=== PATIENT | male | born 1985 | race Caucasian/White ===

== ENCOUNTER → 2021-09-07 14:07 | Outpatient (BNVA) | payer OTHER, SELFPAY | PROVIDERS: Visit Provider Pediatrics | DX: Z01.812 Encounter for preprocedural laboratory examination (principal); Z20.822 Contact with and (suspected) exposure to COVID-19 | CPT/HCPCS: 87635 ==

== ENCOUNTER 2021-09-13 10:53 | Outpatient (CLI) | payer OTHER, SELFPAY ==
--- NOTE | 2021-09-13 12:09 | PFTS_ITS ---
Date of Study:09/13/21 Date of Dictation: 09/13/2021 MECHANICS: Post bronchodilator forced vital capacity (FVC) is normal. Post bronchodilator forced expiratory volume in one second (FEV1) is normal. FEV1/FVC is reduced. There is significant response to bronchodilators FLOW VOLUME LOOP: Slight sloping of expiratory limb suggestive of mild airway obstruction. LUNG VOLUMES: Not measured DIFFUSING CAPACITY FOR CARBON MONOXIDE: Not measured . INTERPRETATION: The postbronchodilator spirometry suggestive of mild obstruction. There is significant response to bronchodilators. Lung volumes and gas transfer not measured. MTDD
== END 2021-09-13 10:54 | disposition home or self-care (01) ==
LOC: RT 10:58
PROVIDERS: PCP Family Medicine; Visit Provider Family Medicine
DX: R06.2 Wheezing (principal)
CPT/HCPCS: 94060; J7611

== ENCOUNTER 2021-11-15 06:46 | Outpatient (CLI) | payer OTHER, SELFPAY ==
--- NOTE | 2021-11-15 07:00 | US_ITS ---
WS: [id number] ULTRASOUND ABDOMEN LIMITED CLINICAL INFORMATION: PERSISTENT VOMITING/COLICKY RUQ ABDOMINAL PAIN COMPARISON: None. FINDINGS: Liver Size: Enlarged Craniocaudal length: 18.5 cm. Echogenicity: Coarse Surface nodularity: None. Mass (size and location): None. Bile ducts Intrahepatic ducts: Normal. Common bile duct diameter: 0.5 cm. Gallbladder Normal. Gallstones: None. Gallbladder sludge: None. Gallbladder wall thickening: None. Pericholecystic fluid: None. Sonographic Alonzo sign: Absent. Pancreas Echogenic pancreas. This can be seen with pancreatitis. Recommend with pancreatic enzymes. Normal villalobos creatic duct. Right kidney: Normal. Hydronephrosis: None. Size: 10.4 cm x 5.7 cm x 5.0 cm. Abdominal aorta and IVC Visualized portions are normal. Ascites: None. US/US abdomen limited [id number] IMPRESSION: 1. Hepatomegaly with diffuse fatty infiltration. 2. Normal gallbladder and common bile duct. 3. No hydronephrosis in RIGHT kidney. 4. Echogenic pancreas can be seen with pancreatitis. Correlation with pancreat ic enzymes. This can be further evaluated with contrast-enhanced CT abdomen pel vis.
== END 2021-11-15 06:47 | disposition home or self-care (01) ==
LOC: RAD 06:47
PROVIDERS: PCP Family Medicine; Visit Provider Family Medicine
DX: R11.10 Vomiting, unspecified (principal); R10.11 Right upper quadrant pain; R16.0 Hepatomegaly, not elsewhere classified
CPT/HCPCS: 76705

== ENCOUNTER → 2021-11-29 14:52 | Outpatient (BNVA) | payer OTHER, SELFPAY | PROVIDERS: PCP Family Medicine; Visit Provider Internal Medicine | DX: R53.83 Other fatigue (principal); M25.50 Pain in unspecified joint | CPT/HCPCS: 36415; 72040; 73080; 73120; 73560; 73620; 82533; 82550; 82728; 82784; 83516; 83540; 84100; 84403; 84425; 84443; 85651; 86140; 86200; 86480; 86617; 86704; 86757; 86803; 87340 ==

== ENCOUNTER 2022-02-04 12:04 | Outpatient (CLI) | payer OTHER, SELFPAY ==
[2022-02-04 12:44] LABS: Basophils % 0.2 %; Hematocrit 44.3 % (42.0-52.0); Hemoglobin 15.3 g/dL (11.7-16.6); Lymphocytes # 0.8 10^3/uL (0.8-4.8); Lymphocytes % 12.3 %; Mean Corpuscular HGB Conc 34.5 g/dL (30.0-36.0); Mean Corpuscular Hemoglobin 34.9 pg (28.0-34.0); Mean Corpuscular Volume 101.1 fl (80-94); Mean Platelet Volume 11.2 fL (7.4-10.4); Monocytes # 0.4 10^3/uL (0.2-0.9); Monocytes % 6.6 %; Neutrophils % 80.6 %; Nucleated Red Blood Cells % 0 %; Platelet Count 166 10^3/cmm (130-400); Red Blood Count 4.38 10^6/uL (4.1-5.3); Red Cell Distribution Width 12.7 % (12.1-15.1); White Blood Count 6.1 10^3/uL (4.0-10.0)
[2022-02-04 12:52] LABS: Erythrocyte Sedimentation Rate 4 mm/hr (0-10)
[2022-02-04 13:28] LABS: Alanine Aminotransferase 88 U/L (0-41); Albumin Level 4.5 g/dL (3.5-5.2); Alkaline Phosphatase 93 IU/L (40-130); Anion Gap 16.5 (5-19); Aspartate Amino Transferase 57 U/L (0-40); Blood Urea Nitrogen 9 mg/dL (6-20); Calcium 8.8 mg/dL (8.5-10.5); Carbon Dioxide 26 mmol/L (22-29); Chloride 99 mmol/L (98-107); Globulin 3.3 g/dL (1.3-4.6); Glomerular Filtration Rate 83.6 mL/min (90-130); Glucose 104 mg/dL (65-115); Osmolality Calculated 285 mOsm/kg (285-295); Potassium 3.5 mmol/L (3.5-5.1); Sodium 138 mmol/L (136-145); Total Bilirubin 0.5 mg/dL (0.15-1.2); Total Protein 7.8 g/dL (6.6-8.7)
== END 2022-02-04 12:05 | disposition home or self-care (01) ==
LOC: LAB 12:06
PROVIDERS: PCP Family Medicine; Visit Provider Internal Medicine
DX: M06.9 Rheumatoid arthritis, unspecified (principal); Z79.899 Other long term (current) drug therapy
CPT/HCPCS: 36415; 80053; 85025; 85651; 86140

== ENCOUNTER 2022-02-11 16:42 | Outpatient (CLI) | payer OTHER, SELFPAY ==
--- NOTE | 2022-02-11 | XRR_ITS ---
PROCEDURE INFORMATION: Exam: XR Chest Exam date and time: 02/11/2022 5:54 PM Age: 36 years old Clinical indication: Dyspnea TECHNIQUE: Imaging protocol: Radiologic exam of the chest. Views: 2 views. COMPARISON: CR XR cervical spine fl/ex [id number] 11/29/2021 3:27 PM FINDINGS: Lungs: Hyperinflation, without acute airspace disease. Pleural spaces: No pleural effusion. Heart/Mediastinum: No cardiomegaly. Bones/joints: Mild scoliosis. XR/XR chest 2V* [id number] IMPRESSION: Hyperinflation, without acute airspace disease.
== END 2022-02-11 16:43 | disposition home or self-care (01) ==
PROVIDERS: PCP Family Medicine; Visit Provider Family Medicine
DX: R06.00 Dyspnea, unspecified (principal)
CPT/HCPCS: 71046

== ENCOUNTER → 2022-02-18 16:13 | Outpatient (BNVA) | payer OTHER, SELFPAY | PROVIDERS: PCP Family Medicine; Visit Provider Internal Medicine Critical Care Medicine | DX: R06.02 Shortness of breath (principal); J45.50 Severe persistent asthma, uncomplicated; F17.200 Nicotine dependence, unspecified, uncomplicated | CPT/HCPCS: 36415; 82785; 86003 ==

== ENCOUNTER 2022-09-04 07:23 | Emergency (ER) | payer OTHER, SELFPAY ==
[2022-09-04 07:29] VITALS: BP 171/110; PULSE 89; RESP 16; TEMP 36.8; O2SAT 91; BMI 33.1
--- NOTE | 2022-09-04 07:38 | XR_ITS ---
WS: [id number] RIGHT RIBS, MULTIPLE VIEWS WITH PA CHEST HISTORY: cough, rib pain COMPARISON: 02/11/2022 Lungs and mediastinum: Lungs are clear and well aerated. No pneumothorax or pulmonary contusion. Ribs: No rib fractures or bone destruction identified. XR/XR ribs RT mn 3V w CXR1V [id number] IMPRESSION: No RIGHT rib fractures identified. Nondisplaced rib fracture may be difficult t o identified.
--- NOTE | 2022-09-04 07:39 | ED_ITS ---
HPI - Chest Pain General: Chief Complaint: General Medical Stated Complaint: Cough, Rib pain Time Seen by Provider: 09/04/22 07:24 Source: patient and family Mode of arrival: ambulatory Limitations: no limitations History of Present Illness: Patient is a nice 37-year-old male who presents to ED today with a complaint of right sided lateral chest wall pain that began 2 days ago after coughing. Patient states he chronically coughs secondary to asthma and smoking. Patient states he was coughing when immediately heard a pop to the posterior lateral right chest and has had pain since. Pain seems to be worse with deep inspiration and further coughing. MD complaint: chest pain Onset (ago): day(s) Timing of current episode: constant Prior episodes: No Pain location: right chest Pain radiation: none Severity: severe Quality: sharp Relieving factors: rest Exacerbating factors: inspiration, palpation, movement and other (coughing) Associated symptoms: Reports no associated symptoms; Deny abdominal pain, dyspnea, fever(s), palpitations or syncope Treatment prior to arrival: none Risk Factors: Coronary artery disease risk factors: smoking history and hypertension Thoracic aortic dissection risk factors: none Review of Systems Const: Denies: fever(s), chills, body aches, fatigue or malaise Card: Reports: chest pain; Denies: palpitations, irregular heart rhythm, edema, swelling of feet/ankles, lightheadedness, syncope, pre-syncope or orthopnea Resp: Reports: non-productive cough and pain on inspiration; Denies: dyspnea, wheezing, hemoptysis or chest congestion GI: Denies: abdominal pain Skin/Breast: Denies: rash Neuro: Denies: dizziness PFSH ED PFSH: Medical History Asthma Fatigue Hypertension Rheumatoid arthritis Family History Other CAD (coronary artery disease) Diabetes Hypertension Denies family history of Rheumatoid arthritis Lupus Hyperlipidemia Chronic kidney disease (CKD) Cancer Stroke Social History Smoking and tobacco status: current every day smoker cigarettes Packs smoked per day: 1 Years cigarettes smoked: 29 [ Other cigarette details: start at age 7] Alcohol intake: current Alcohol intake frequency: few times a week History of recent travel: No Physical Exam Const: COMMON NORMALS: no acute distress, average body habitus, patient oriented x3, no limitations, alert and well nourished ORIENTATION/CONSCIOUSNESS: Yes awake, Yes oriented to person, Yes oriented to place and Yes oriented to time HENMT: COMMON NORMALS: normocephalic and atraumatic HEAD & SCALP: normal to inspection, normocephalic and atraumatic Chest: COMMONS NORMALS: normal inspection of the chest OTHER: TTP R posteriolateral chest wall-palpation directly reproduces patient's pain Resp: COMMON NORMALS: normal respiratory effort and clear to auscultation bilaterally AUSCULTATION: clear to auscultation bilaterally Cardio: COMMON NORMALS: regular rate and regular rhythm RATE: regular rate RHYTHM: regular rhythm Neuro: COMMON NORMALS: patient oriented x3 SENSORIUM/ORIENTATION: Yes alert, Yes oriented to person, Yes oriented to place and Yes oriented to time Course Vital Signs: Vital signs: Vital Signs Temperature 98.3 F 09/04/22 07:29 Pulse Rate 89 09/04/22 07:29 Respiratory Rate 16 09/04/22 07:29 Blood Pressure 171/110 09/04/22 07:29 Pulse Oximetry 91 09/04/22 07:29 Oxygen Delivery Me thod 09/04/22 07:29 MDM - Chest Pain Medical Decision Making XRs negative. Will place on NSAIDs and muscle relaxers with a small amount of pain medication for breakthrough/severe pain. Other conservative treatments discussed. He can follow-up with PCP in approximately 1 week if symptoms do not seem to be improving. Lab Data Radiology Impressions Ribs X-Ray 09/04/22 07:38 IMPRESSION: No RIGHT rib fractures identified. Nondisplaced rib fracture may be difficult to identified. Discharge Plan Discharge Patient Disposition: Home Clinical Impression: Strain of chest wall Qualifiers: Encounter type: initial encounter Qualified Code(s): S29.011A - Strain of muscle and tendon of front wall of thorax, initial encounter Condition: Stable Prescriptions: New methocarbamol 500 mg tablet 1,000 mg PO Q8H Qty: 30 0RF ibuprofen 800 mg tablet 800 mg PO Q8H PRN (Reason: pain) Qty: 20 0RF hydrocodone-acetaminophen 5-325 mg tablet 1 tab PO Q6H PRN (Reason: pain) Qty: 14 0RF No Action hydroxychloroquine 200 mg tablet 200 mg PO BID Qty: 60 2RF Magnesium 500 mg PO thiamine HCl (vitamin B1) 100 mg tablet 100 mg PO DAILY folic acid 1 mg tablet 1 mg PO DAILY varenicline 1 mg tablet 1 mg PO BID losartan 50 mg tablet 50 mg PO DAILY omeprazole 20 mg capsule,delayed release(DR/EC) 20 mg PO DAILY albuterol sulfate 90 mcg/actuation HFA aerosol inhaler 2 puff inhalation Q6H PRN fluticasone propionate [Flonase Allergy Relief] 50 mcg/actuation spray,suspension 1 spray intranasal DAILY Rx Instructions: administer into each nostril amlodipine 5 mg tablet 5 mg PO DAILY prednisone 5 mg tablet 10 mg PO DAILY azithromycin 500 mg tablet 500 mg PO DAILY 5 Days Qty: 5 0RF Trelegy Ellipta 200-62.5-25 mcg blister with device 1 inh inhalation DAILY 60 Days Qty: 60 4RF montelukast [Singulair] 10 mg tablet 10 mg PO DAILY 30 Days Qty: 30 4RF Discharge Orders: Discharge ED (Routine); Ordered 09/04/22 Ordered By: Tiffany Wynn Referrals: Madhavi Gimenez DO [Primary Care Provider] - Patient Instructions: Chest Pain - Chest Wall, Opioid Safety, Pain Management Coding Level of Care Code ED Grain Shipper for Landon Hdez
--- NOTE | 2022-09-04 07:46 | PC.NURSE ---
PAIN LOCATED IN RIGHT SIDE OVER RIBS
== END 2022-09-04 08:17 | disposition home or self-care (01) ==
PROVIDERS: Emergency Provider Physician Assistant; PCP Family Medicine
DX: S29.011A Strain of muscle and tendon of front wall of thorax, initial encounter (principal); X58.XXXA Exposure to other specified factors, initial encounter
CPT/HCPCS: 71101; 99283

== ENCOUNTER 2023-03-25 20:00 | Outpatient (CLI) | payer OTHER, SELFPAY | END 2023-03-25 20:01 | disposition home or self-care (01) | LOC: SLEEP 03-26 05:36 | PROVIDERS: PCP Family Medicine; Visit Provider Internal Medicine Pulmonary Disease | DX: G47.33 Obstructive sleep apnea (adult) (pediatric) (principal); R53.83 Other fatigue; G47.36 Sleep related hypoventilation in conditions classified elsewhere | CPT/HCPCS: 95810 ==

== ENCOUNTER 2023-04-05 21:55 | Emergency (ER) | payer OTHER, SELFPAY ==
[2023-04-05 21:58] VITALS: BP 104/69; PULSE 90; RESP 16; TEMP 36.4; O2SAT 95; BMI 34.0
--- NOTE | 2023-04-05 22:02 | ECG_ITS ---
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 Measurements Intervals [place] Rate: 90 P: 70 FL: 155 QRS: 110 QRSD: 105 T: 17 QT: 353 QTc: 432 Interpretive Statements SINUS RHYTHM POSSIBLE RIGHT VENTRICULAR HYPERTROPHY [SOME/ALL OF: PROMINENT R IN V1, LATE TRANSITION, RAD, MADELIN, SSS] No previous ECG available for comparison Electronically Signed On 04-06-2023 10:53:58 CDT by Jerson Gay M.D. [id number]
--- NOTE | 2023-04-05 22:02 | ECG_ITS ---
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 Measurements Intervals [place] Rate: 90 P: 70 [place]: 155 QRS: 110 QRSD: 105 T: 17 QT: 353 QTc: 432 Interpretive Statements SINUS RHYTHM POSSIBLE RIGHT VENTRICULAR HYPERTROPHY [SOME/ALL OF: PROMINENT R IN V1, LATE TRANSITION, RAD, MADELIN, SSS] No previous ECG available for comparison Electronically Signed On 04-06-2023 10:54:02 CDT by Jerson Gay M.D. [id number]
== END 2023-04-05 23:05 | disposition left against medical advice (07) ==
PROVIDERS: Emergency Provider Nurse Practitioner; PCP Family Medicine
DX: Z53.21 Procedure and treatment not carried out due to patient leaving prior to being seen by health care provider (principal)
CPT/HCPCS: 93005; 99283

== ENCOUNTER 2023-04-23 13:07 | Outpatient (CLI) | payer OTHER, SELFPAY ==
[2023-04-23 14:10] LABS: Basophils # 0.1 10^3/uL (0.0-0.1); Basophils % 0.9 %; Eosinophils # 0.1 10^3/uL (0.0-0.8); Eosinophils % 1.2 %; Hematocrit 44.7 % (37-53); Lymphocytes # 2.7 10^3/uL (0.8-4.8); Lymphocytes % 33.4 %; Mean Corpuscular HGB Conc 35.3 g/dL (30-55); Mean Corpuscular Hemoglobin 36.8 pg (27-33); Mean Corpuscular Volume 104.2 fl (82-101); Mean Platelet Volume 9.6 fL (7.4-10.4); Monocytes # 0.6 10^3/uL (0.2-0.9); Monocytes % 7.8 %; Neutrophils # 4.64 10^3/uL (1.8-7.7); Neutrophils % 56.5 %; Nucleated Red Blood Cells % 0 %; Platelet Count 292 10^3/cmm (157-399); Red Blood Count 4.29 10^6/uL (3.85-5.65); Red Cell Distribution Width 14.7 % (12.1-15.1); White Blood Count 8.21 10^3/uL (3.29-11.43)
[2023-04-23 14:43] LABS: Alanine Aminotransferase 77 U/L (0-41); Albumin Level 4.1 g/dL (3.5-5.2); Alkaline Phosphatase 89 U/L (40-130); Aspartate Amino Transferase 54 U/L (0-40); Total Bilirubin 0.5 mg/dL (0.15-1.2); Total Protein 7.1 g/dL (6.6-8.7)
== END 2023-04-23 13:08 | disposition home or self-care (01) ==
PROVIDERS: PCP Family Medicine; Visit Provider Surgery
DX: F10.10 Alcohol abuse, uncomplicated (principal)
CPT/HCPCS: 36415; 80076; 85025

== ENCOUNTER 2023-04-28 07:27 | Outpatient (CLI) | payer OTHER, SELFPAY ==
--- NOTE | 2023-04-28 07:45 | US_ITS ---
WS: [id number] Complete ABDOMINAL ULTRASOUND HISTORY: abdominal pain COMPARISON: 11/15/2021 Liver: 15.0 cm in length. Normal size liver. Very mild coarse echotexture throughout the liver probab ly indicative of hepatic steatosis. No mass or bile duct dilatation. Portal Vein: Normal hepatopetal flow with monophasic waveform. Gallbladder: Normally distended gallbladder with no stones or wall thickening. CBD: 0.3 cm Pancreas: Normal size and echogenicity. Right kidney: 9.4 cm x 4.5 x 4.4 cm. Cortex:1.0 cm. Normal size and echogenicity. No hydronephrosis or mass. Left kidney: 10.3 cm x 4.3 cm x 5.3 cm. Cortex: 1.2 cm. Normal size and echogenicity. No hydronephrosis or mass. Spleen: Normal. Aorta and IVC: Unremarkable abdominal aorta and IVC. Impression: 1. Negative gallbladder. 2. Mild hepatic steatosis. 3. Remaining ultrasound is negative
== END 2023-04-28 07:28 | disposition home or self-care (01) ==
PROVIDERS: PCP Family Medicine; Visit Provider Surgery
DX: R10.9 Unspecified abdominal pain (principal); K76.0 Fatty (change of) liver, not elsewhere classified
CPT/HCPCS: 76700

== ENCOUNTER 2023-05-20 12:58 | Outpatient (CLI) | payer OTHER, SELFPAY ==
[2023-05-20 14:36] LABS: Alanine Aminotransferase 163 U/L (0-41); Albumin Level 4.3 g/dL (3.5-5.2); Alkaline Phosphatase 93 U/L (40-130); Anion Gap 13.9 (5-19); Aspartate Amino Transferase 91 U/L (0-40); Blood Urea Nitrogen 12 mg/dL (6-20); Calcium 9.5 mg/dL (8.5-10.5); Carbon Dioxide 32 mmol/L (22-29); Chloride 95 mmol/L (98-107); Glomerular Filtration Rate 74.1 mL/min (90-130); Glucose 92 mg/dL (65-115); Osmolality Calculated 285 mOsm/kg (285-295); Sodium 138 mmol/L (136-145); Total Bilirubin 0.8 mg/dL (0.15-1.2); Total Protein 7.3 g/dL (6.6-8.7)
[2023-05-20 14:39] LABS: Potassium 2.9 mmol/L (3.5-5.1)
== END 2023-05-20 12:59 | disposition home or self-care (01) ==
PROVIDERS: PCP Family Medicine; Visit Provider Family Medicine
DX: E87.5 Hyperkalemia (principal)
CPT/HCPCS: 80053

== ENCOUNTER 2023-05-23 05:54 | Day surgery (SDC) | payer OTHER, SELFPAY ==
[2023-05-23] VITALS (11 sets, daily range): BP systolic 100–181; BP diastolic 66–107; PULSE 69–96; RESP 12–22; TEMP 36.6–36.9; O2SAT 91–97; BMI 33.5
[2023-05-23] MEDS: sodium chloride 0.9% 1,000 ML 30 ML IV (06:12)
--- NOTE | 2023-05-23 06:43 | W.PM.OPSFHP ---
Same Day Surgery H&P Indication for Procedure/HPI DATE OF PROCEDURE: May 23, 2023 CHIEF COMPLAINT/INDICATIONFOR SURGICAL PROCEDURE: Epigastric pain PREOP DIAGNOSIS: Alcoholic gastritis PLANNED PROCEDURE: Operation Date: 05/23/23 07:00 Proposed Procedures p EGD 72113,r10.9(Not Applicable) - Krish Felix MD Medications/Allergies* Home Medications Medication Instructions Recorded Confirmed Type albuterol sulfate 90 mcg/actuation 2 puff inhalation Q6H PRN 11/29/21 05/22/23 History aerosol inhaler Shortness Of Breath losartan 50 mg tablet 50 mg PO QAM 11/29/21 05/22/23 History hydrochlorothiazide 25 mg tablet 12.5 mg PO BID 04/04/23 05/22/23 History losartan 50 mg tablet 25 mg PO QPM 05/22/23 05/22/23 History Allergies/Adverse Reactions Allergy/AdvReac Type Severity Reaction Status Date / Time No Known Allergies Allergy Verified 04/21/23 08:22 Current Medications: Generic Name Dose Route Start Last Admin Trade Name Freq PRN Reason Stop Dose Admin Sodium Chloride 1,000 mls @ 30 mls/hr 05/23/23 06:00 05/23/23 06:12 Sodium Chloride 0.9% IV 05/24/23 05:59 30 mls/hr .Q24H JEFFREY Administration Pertinent History/Comorbid Conditions* Medical History (Updated 04/04/23 @ 09:31 by Luna Ortiz MD) Asthma Fatigue Hypertension Rheumatoid arthritis Family History (Updated 11/29/21 @ 13:28 by Ayah Ward LPN) Diabetes CAD (coronary artery disease) Hypertension Denies family history of Rheumatoid arthritis Lupus Hyperlipidemia Chronic kidney disease (CKD) Cancer Stroke Social History Smoking and tobacco/nicotine status: current every day tobacco/nicotine user cigarettes Packs smoked per day: 1 Years cigarettes smoked: 29 [ Other cigarette details: start at age 7] Alcohol intake: current Alcohol intake frequency: few times a week Substance/Drug Use: never Pertinent Exam Findings alert and oriented x 3 Recommendations Surgery/Procedure today Other Plans: After a complete history, physical examination and review of all available clinical data. I have offer Upper endoscopy. I have discussed all the risks and benefits of the endoscopy. Including, the risk of perforation requiring surgical intervention, bleeding, need for additional procedures. Patient shows understanding and wishes to proceed. Coding Level of Care Code Acute Code for Chg Fwd Diagnoses
--- NOTE | 2023-05-23 06:52 | ANES.PREANE2 ---
Pre-Anesthetic Assessment Height/Weight: Height 1.63 m Weight 88.451 kg Temp Pulse Resp BP Pulse Ox O2 Del Method 98.4 F 78 18 181/107 97 Room Air 05/23/23 06:07 05/23/23 06:07 05/23/23 06:07 05/23/23 06:07 05/23/23 06:07 05/23/23 06:07 Preop Diagnosis: Alcoholic gastritis Operation Date: 05/23/23 07:00 Proposed Procedures p EGD 92404,r10.9(Not Applicable) - rKish Felix MD Familial anesthetic complications: None Was Beta Ankit taken within 24 hours: N/A Was Clonidine taken within 24 hours: N/A Last intake: Intake Last Liquid Date 05/22/23 Last Liquid Time 20:00 Last Solid Date 05/22/23 Last Solid Time 20:00 Social Tobacco and No alcohol (2-4 drinks per day ) 1 pack(s) per day 30 pack years Exam alert, oriented x 3 and clear to auscultation bilaterally Airway Submandibular: within normal limits Mallampati: Class II Dentition: full History/ROS No significant history except as noted Pulmonary Asthma (daily inhaler use) and Sleep Apnea CV/HEM Hypertension None reported Hepatic fatty liver GI Gastroesophageal Reflux Disease nausea, vomiting daily Metabolic None reported Musc/skel Rheumatoid Arthritis Neuropsych previous seizure-like activity Anesthetic Plan ASA status: 3 Anesthesia: Anesthesia Evaluation and MAC Risk of > 500 ml blood loss (7ml/kg in children): No Medications/Allergies Home Medications Medication Instructions Recorded Confirmed Last Taken Type albuterol sulfate 90 mcg/actuation 2 puff inhalation Q6H PRN 11/29/21 05/22/23 05/23/23 05:00 History aerosol inhaler Shortness Of Breath losartan 50 mg tablet 50 mg PO QAM 11/29/21 05/22/23 05/22/23 History montelukast 10 mg tablet 10 mg PO DAILY #30 tabs 12/02/22 05/22/23 05/22/23 Rx (Singulair) fluticasone fur. 200 mcg-umeclid 1 inh inhalation DAILY #60 ea 02/17/23 05/22/23 05/22/23 Rx 62.5 mcg-vilant 25 mcg inhalat.powder (Trelegy Ellipta) hydrochlorothiazide 25 mg tablet 12.5 mg PO BID 04/04/23 05/22/23 05/22/23 History hydroxychloroquine 200 mg tablet 200 mg PO BID #60 tabs 04/04/23 05/22/23 05/22/23 Rx varenicline 1 mg tablet (Chantix) 1 mg PO BID 90 days #180 tabs 04/04/23 05/22/23 05/22/23 Rx losartan 50 mg tablet 25 mg PO QPM 05/22/23 05/22/23 05/22/23 History Allergies Allergy/AdvReac Type Severity Reaction Status Date / Time No Known Allergies Allergy Verified 04/21/23 08:22 Current Medications Generic Name Dose Route Start Last Admin Trade Name Freq PRN Reason Stop Dose Admin Sodium Chloride 1,000 mls @ 30 mls/hr 05/23/23 06:00 05/23/23 06:12 Sodium Chloride 0.9% IV 05/24/23 05:59 30 mls/hr .Q24H JEFFREY Administration PFSH Anesthesia Medical History Asthma Fatigue Hypertension Rheumatoid arthritis Family History Other CAD (coronary artery disease) Diabetes Hypertension Denies family history of Rheumatoid arthritis Lupus Hyperlipidemia Chronic kidney disease (CKD) Cancer Stroke Social History Smoking and tobacco/nicotine status: current every day tobacco/nicotine user cigarettes Packs smoked per day: 1 Years cigarettes smoked: 29 [ Other cigarette details: start at age 7] Alcohol intake: current Alcohol intake frequency: few times a week Substance/Drug Use: never Data Anesthesia Cardiac Studies: No Data to Display
--- NOTE | 2023-05-23 07:42 | ANE.PACU2 ---
Inpatient post-anesthesia follow up: Airway intact: Yes Vital signs: Temperature 98.4 F Pulse Rate 78 Respiratory Rate 18 Blood Pressure 181/107 Pulse Oximetry 97 Oxygen Delivery Me thod Room Air Oxygen Flow Rate Fraction of Inspir ed Oxygen Hydration adequate: Yes Nausea and vomiting: No Pain level: 0 Mental status: Baseline
== END 2023-05-23 08:49 | disposition home or self-care (01) ==
PROVIDERS: PCP Family Medicine; Visit Provider Surgery
PROC: 0DJ08ZZ Inspection of Upper Intestinal Tract, Via Natural or Artificial Opening Endoscopic (ICD-10-PCS; CPT 43235; principal; 2023-05-23 07:00)
DX: R13.10 Dysphagia, unspecified (principal); F17.210 Nicotine dependence, cigarettes, uncomplicated; K22.70 Barrett's esophagus without dysplasia; L53.9 Erythematous condition, unspecified; I10 Essential (primary) hypertension; M06.9 Rheumatoid arthritis, unspecified; K29.50 Unspecified chronic gastritis without bleeding; K21.00 Gastro-esophageal reflux disease with esophagitis, without bleeding
CPT/HCPCS: 43239; 88305; 88342; J0330; J1100; J2405; J2704; J7030

== ENCOUNTER 2023-05-27 12:59 | Outpatient (CLI) | payer OTHER, SELFPAY ==
[2023-05-27 13:48] LABS: Alanine Aminotransferase 164 U/L (0-41); Albumin Level 4.1 g/dL (3.5-5.2); Alkaline Phosphatase 83 U/L (40-130); Anion Gap 12.9 (5-19); Aspartate Amino Transferase 75 U/L (0-40); Blood Urea Nitrogen 8 mg/dL (6-20); Carbon Dioxide 31 mmol/L (22-29); Chloride 96 mmol/L (98-107); Globulin 2.9 g/dL (1.3-4.6); Glomerular Filtration Rate 93.5 mL/min (90-130); Glucose 91 mg/dL (65-115); Osmolality Calculated 282 mOsm/kg (285-295); Sodium 137 mmol/L (136-145); Total Bilirubin 0.4 mg/dL (0.15-1.2)
[2023-05-27 14:10] LABS: Potassium 2.9 mmol/L (3.5-5.1)
== END 2023-05-27 13:00 | disposition home or self-care (01) ==
LOC: LAB 13:02
PROVIDERS: PCP Family Medicine; Visit Provider Family Medicine
DX: E87.6 Hypokalemia (principal)
CPT/HCPCS: 36415; 80053

== ENCOUNTER 2023-06-02 15:21 | Outpatient (CLI) | payer OTHER, SELFPAY ==
[2023-06-02 16:54] LABS: 25 Hydroxy Vitamin D 25 ng/mL (30-100); Anion Gap 15.2 (5-19); Blood Urea Nitrogen 8 mg/dL (6-20); Calcium 8.4 mg/dL (8.5-10.5); Carbon Dioxide 26 mmol/L (22-29); Chloride 105 mmol/L (98-107); Glomerular Filtration Rate 74.1 mL/min (90-130); Glucose 86 mg/dL (65-115); Iron 187 ug/dL (59-158); Magnesium 2.1 mg/dL (1.7-2.3); Osmolality Calculated 294 mOsm/kg (285-295); Potassium 3.2 mmol/L (3.5-5.1); Sodium 143 mmol/L (136-145); Vitamin B12 341 pg/mL (232-1245)
== END 2023-06-02 15:22 | disposition home or self-care (01) ==
LOC: LAB 15:23
PROVIDERS: PCP Family Medicine; Visit Provider Family Medicine
DX: E87.6 Hypokalemia (principal); I10 Essential (primary) hypertension
CPT/HCPCS: 80048; 82306; 82607; 82746; 83540; 83735

== ENCOUNTER 2023-06-16 14:57 | Outpatient (CLI) | payer OTHER, SELFPAY ==
--- NOTE | 2023-06-16 15:15 | MR_ITS ---
WS: [id number] MRI HEAD WITHOUT CONTRAST TECHNIQUE: Sagittal T1, T2 axial, T2 axial FLAIR, axial and coronal T1 images, axial susceptibility w eighted imaging, axial diffusion weighted images, and coronal T2 images were obtained. CLINICAL INFORMATION: G40.909 - Epilepsy, unspecified, not intractable, without... COMPARISON: None. FINDINGS: No evidence of restricted diffusion to suggest acute ischemia. Ventricular system and basilar cistern s are patent. No suspicious intracranial signal normalities. Mild parenchymal volume loss. Normal pos terior fossa. Normal vascular flow voids at the skull base. No extra-axial fluid collections. No evid ence of mass or mass effect. Several small polyps or retention cysts in the posterior nasopharynx. Mild mucosal thickening in the ethmoid air cells, maxillary sinuses, sphenoid sinuses, and frontal sinuses. Mucosal thickening LEFT mastoid air cells. Normal optic chiasm and pituitary infundibulum. Temporal lobes and hippocampal formations are normal in appearance. IMPRESSION: 1. No evidence of restricted diffusion to suggest acute ischemia. 2. No suspicious intracranial signal abnormalities. 3. Mild parenchymal volume loss. 4. Several small polyps or retention cysts in the posterior nasopharynx. Recommend direct visualizat ion. These measure approximately 8 to 9 mm. 5. Mild mucosal thickening in the paranasal sinuses and LEFT mastoid air cells. 6. No hemosiderin on the susceptibility weighted images. 7. Temporal lobes and hippocampal formations are normal in appearance.
== END 2023-06-16 14:58 | disposition home or self-care (01) ==
LOC: RAD 14:57
PROVIDERS: PCP Family Medicine; Visit Provider Specialist
DX: G40.909 Epilepsy, unspecified, not intractable, without status epilepticus (principal); J33.0 Polyp of nasal cavity
CPT/HCPCS: 70551

== ENCOUNTER 2023-07-07 18:31 | Observation (INO) | payer OTHER, SELFPAY ==
--- NOTE | 2023-07-07 18:35 | XRR_ITS ---
PROCEDURE INFORMATION: Exam: XR Chest Exam date and time: 07/07/2023 6:41 PM Age: 38 years old Clinical indication: Other: Weakness TECHNIQUE: Imaging protocol: Radiologic exam of the chest. Views: 1 view. COMPARISON: CR XR ribs RT mn 3V w CXR1V [id number] 09/04/2022 7:50 AM FINDINGS: Lungs: Unremarkable. No consolidation. Pleural spaces: Unremarkable. No pleural effusion. No pneumothorax. Heart/Mediastinum: Unremarkable. No cardiomegaly. Bones/joints: Unremarkable. XR/XR chest 1V portable [id number] IMPRESSION: No acute findings.
[2023-07-07 18:38] VITALS: BP 108/62; PULSE 81; RESP 16; TEMP 37.1; O2SAT 97
--- NOTE | 2023-07-07 18:40 | ECG_ITS ---
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 Measurements Intervals [place] Rate: 81 P: 49 [place]: 161 QRS: 95 QRSD: 117 T: 61 QT: 377 QTc: 439 Interpretive Statements SINUS RHYTHM BORDERLINE RIGHT AXIS DEVIATION [QRS AXIS > 90] MODERATE INTRAVENTRICULAR CONDUCTION DELAY [110+ ms QRS DURATION] NONSPECIFIC T-WAVE ABNORMALITY Compared to ECG 04/05/2023 22:02:00 Intraventricular conduction delay now present T-wave abnormality now present Atrial abnormality no longer present Electronically Signed On 07-08-2023 8:16:17 FACILITY MANAGER by Prasad Owusu M.D. [id number]
[2023-07-07] MEDS: sodium chloride 0.9% 1,000 ML 999 ML IV ×2 (18:45→19:42)
--- NOTE | 2023-07-07 18:45 | ED_ITS ---
HPI - General Adult 2 General: Chief complaint: General Medical Stated complaint: dehydration Time Seen by Provider: 07/07/23 18:32 Source: patient and EMS Mode of arrival: EMS Limitations: no limitations History of Present Illness: 38-year-old male states he had been doin g a lot of activities today hanging up [employer] decorations states that just prior to arrival he felt nauseous diaphoretic and had a syncopal event per his . EMS states initial blood pressures in the 70s with fluids to improve he states he is feeling much improved currently as well he denies any chest pain denies any headache states he had slight cough and congestion recently was diagnosed with COVID. He denies any fevers. Associated symptoms: Reports malaise and nausea; Deny chest pain, dyspnea, headache(s), rash or vomiting Review of Systems 2 Const: Reports: fatigue and malaise; Denies: fever(s), chills, body aches or change in appetite ENMT: Denies: throat pain or dental pain Card: Denies: chest pain Resp: Denies: dyspnea GI: Reports: nausea; Denies: abdominal pain, vomiting or diarrhea Musc: Denies: neck pain or back pain Skin/Breast: Denies: rash Neuro: Denies: headache(s) PFSH ED 2 PFSH: Medical History Hypertension Asthma Rheumatoid arthritis Fatigue Family History Other CAD (coronary artery disease) Diabetes Hypertension Denies family history of Rheumatoid arthritis Lupus Hyperlipidemia Chronic kidney disease (CKD) Cancer Stroke Social History Smoking and tobacco/nicotine status: current every day tobacco/nicotine user cigarettes Packs smoked per day: 1 Years cigarettes smoked: 29 [ Other cigarette details: start at age 7] Alcohol intake: current Alcohol intake frequency: few times a week Substance/Drug Use: never Physical Exam 2 Const: COMMON NORMALS: no acute distress, patient oriented x3 and healthy appearing HENMT: COMMON NORMALS: normocephalic and atraumatic HEAD & SCALP: n ormocephalic and atraumatic Eye: COMMON NORMALS: Equal, round and reactive pupils present and EOMs intact bilaterally PUPIL: Yes Equal, round and reactive pupils present Neck/C-Spine: COMMON NORMALS: full ROM and supple Chest: COMMONS NORMALS: normal inspection of the chest and normal palpation of entire chest wall Resp: COMMON NORMALS: normal respiratory effort, No retractions, No use of accessory muscles and clear to auscultation bilaterally AUSCULTATION: clear to auscultation bilaterally Cardio: COMMON NORMALS: regular rate, regular rhythm and No murmurs present (Cardio) RATE: regular rate RHYTHM: regular rhythm GI: COMMON NORMALS: Normal to inspection, nondistended, normoactive bowel sounds present, Soft to palpation, non-tender and no masses PALPATION: Yes Soft to palpation Extremity: COMMON NORMALS: normal to inspection and full ROM Neuro: COMMON NORMALS: patient oriented x3, moves all extremities and no focal motor deficits Psych: COMMON NORMALS: mental status grossly normal, Normal thought process present and cooperative THOUGHT PROCESS: Normal thought process present Skin: COMMON NORMALS: no rashes or lesions noted and no wounds GENERAL SKIN EXAM: no rashes or lesions noted Course 2 Vital Signs: Vital signs: Vital Signs Temperature 98.7 F 07/07/23 18:38 Pulse Rate 81 07/07/23 18:38 Respiratory Rate 16 07/07/23 18:38 Blood Pressure 108/62 07/07/23 18:38 Pulse Oximetry 97 07/07/23 18:38 Oxygen Delivery Me thod Room Air 07/07/23 18:38 MDM - General Adult Medical Decision Making Patient presents here after a syncopal event is likely due to dehydration he does have hypokalemia and acute kidney injury feels improved after IV fluids his blood pressure here has been normal he has no signs of septic shock. He is COVID-positive spoke to the hospitalist will admit at this time. Medical Records I reviewed the patient's medical records. Lab Data I reviewed the patient's lab results. 07/07/23 18:59 07/07/23 18:59 Radiology Impressions Chest X-Ray 07/07/23 18:35 IMPRESSION: No acute findings. Laboratory Results WBC 16.94 10^3/uL (3.29-11.43) H 07/07/23 18:59 RBC 4.42 10^6/uL (3.85-5.65) 07/07/23 18:59 Hgb 16.50 g/dL (11.27-16.99) 07/07/23 18:59 Hct 47.3 % (37-53) 07/07/23 18:59 MCV 107.0 fl (82-101) H 07/07/23 18:59 MCH 37.3 pg (27-33) H 07/07/23 18:59 MCHC 34.9 g/dL (30-55) 07/07/23 18:59 RDW 12.7 % (12.1-15.1) 07/07/23 18:59 Plt Count 217 10^3/cmm (157-399) 07/07/23 18:59 MPV 10.8 fL (7.4-10.4) H 07/07/23 18:59 Neut % (Auto) 82.4 % 07/07/23 18:59 Lymph % (Auto) 8.5 % 07/07/23 18:59 [place] % (Auto) 7.6 % 07/07/23 18:59 Eos % (Auto) 0.1 % 07/07/23 18:59 Baso % (Auto) 0.6 % 07/07/23 18:59 Neut # (Auto) 13.98 10^3/uL (1.8-7.7) H 07/07/23 18:59 Lymph # (Auto) 1.4 10^3/uL (0.8-4.8) 07/07/23 18:59 [place] # (Auto) 1.3 10^3/uL (0.2-0.9) H 07/07/23 18:59 Eos # (Auto) 0.0 10^3/uL (0.0-0.8) 07/07/23 18:59 Baso # (Auto) 0.1 10^3/uL (0.0-0.1) 07/07/23 18:59 Nucleated RBC % (auto) 0 % 07/07/23 18:59 Nucleated RBCs # 0.0 /100WBC 07/07/23 18:59 Sodium 136 mmol/L (136-145) 07/07/23 18:59 Potassium 2.5 mmol/L (3.5-5.1) L* 07/07/23 18:59 Chloride 94 mmol/L (98-107) L 07/07/23 18:59 Carbon Dioxide 28 mmol/L (22-29) 07/07/23 18:59 Anion Gap 16.5 (5-19) 07/07/23 18:59 BUN 15 mg/dL (6-20) 07/07/23 18:59 Creatinine 2.7 mg/dL (0.7-1.2) H 07/07/23 18:59 GFR Calculation 26.3 mL/min (90-130) L 07/07/23 18:59 Glucose 119 mg/dL (65-115) H 07/07/23 18:59 Calculated Osmolality 284 mOsm/kg (285-295) L 07/07/23 18:59 Lactic Acid 2.5 mmol/L (0.5-2.2) H 07/07/23 19:07 Calcium 8.9 mg/dL (8.5-10.5) 07/07/23 18:59 Magnesium 1.8 mg/dL (1.7-2.3) 07/07/23 18:59 Total Bilirubin 0.3 mg/dL (0.15-1.2) 07/07/23 18:59 AST 144 U/L (0-40) H 07/07/23 18:59 ALT 166 U/L (0-41) H 07/07/23 18:59 Alkaline Phosphatase 93 U/L (40-130) 07/07/23 18:59 Total Protein 6.9 g/dL (6.6-8.7) 07/07/23 18:59 Albumin 3.9 g/dL (3.5-5.2) 07/07/23 18:59 Globulin 3.0 g/dL (1.3-4.6) 07/07/23 18:59 SARS-CoV-2 Ag (Rapid) positive (Negative) H 07/07/23 19:44 No radiology studies performed this visit EKG Data EKG 1: I personally reviewed and interpreted this EKG as follows: EKG interpretation date: 07/07/23 EKG interpretation time: 18:40 Interpretation: nsr hr [address] or t wave abnormalities qrs 117 qtc 414 Computer generated interpretation: Chest X-Ray 07/07/23 18:35 IMPRESSION: No acute findings. Discharge Plan Discharge Patient Disposition: Placed in Observation Clinical Impression: Syncope, Acute kidney injury, Hypokalemia, COVID-19 Condition: Stable Prescriptions: No Action sucralfate 100 mg/mL suspension 1 g PO BID 42 Days Qty: 840 0RF pantoprazole 40 mg tablet,delayed release (DR/EC) 40 mg PO BID 30 Days Qty: 60 5RF losartan 50 mg tablet 50 mg PO QAM albuterol sulfate 90 mcg/actuation HFA aerosol inhaler 2 puff inhalation Q6H PRN (Reason: Shortness Of Breath) hydrochlorothiazide 25 mg tablet 12.5 mg PO BID varenicline [Chantix] 1 mg tablet 1 mg PO BID 90 Days Qty: 180 0RF folic acid 1 mg tablet 1 mg PO DAILY cholecalciferol (vitamin D3) 50 mcg (2,000 unit) capsule 50 mcg PO DAILY montelukast [Singulair] 10 mg tablet 10 mg PO DAILY Qty: 30 4RF hydroxychloroquine 200 mg tablet 200 mg PO BID Qty: 60 2RF Trelegy Ellipta 200-62.5-25 mcg blister with device 1 inh inhalation DAILY Qty: 60 6RF losartan 50 mg tablet 25 mg PO QPM Referrals: Madhavi Gimenez DO [Primary Care Provider] - Coding Level of Care Code ED It Security Project Manager for L[facility] Hdez
[2023-07-07 19:21] LABS: Basophils # 0.1 10^3/uL (0.0-0.1); Basophils % 0.6 %; Eosinophils % 0.1 %; Hematocrit 47.3 % (37-53); Lymphocytes # 1.4 10^3/uL (0.8-4.8); Lymphocytes % 8.5 %; Mean Corpuscular HGB Conc 34.9 g/dL (30-55); Mean Corpuscular Hemoglobin 37.3 pg (27-33); Mean Platelet Volume 10.8 fL (7.4-10.4); Monocytes # 1.3 10^3/uL (0.2-0.9); Monocytes % 7.6 %; Neutrophils # 13.98 10^3/uL (1.8-7.7); Neutrophils % 82.4 %; Nucleated Red Blood Cells % 0 %; Platelet Count 217 10^3/cmm (157-399); Red Blood Count 4.42 10^6/uL (3.85-5.65); Red Cell Distribution Width 12.7 % (12.1-15.1); White Blood Count 16.94 10^3/uL (3.29-11.43)
[2023-07-07 19:38] LABS: Alanine Aminotransferase 166 U/L (0-41); Albumin Level 3.9 g/dL (3.5-5.2); Alkaline Phosphatase 93 U/L (40-130); Anion Gap 16.5 (5-19); Aspartate Amino Transferase 144 U/L (0-40); Blood Urea Nitrogen 15 mg/dL (6-20); Calcium 8.9 mg/dL (8.5-10.5); Carbon Dioxide 28 mmol/L (22-29); Chloride 94 mmol/L (98-107); Glomerular Filtration Rate 26.3 mL/min (90-130); Glucose 119 mg/dL (65-115); Osmolality Calculated 284 mOsm/kg (285-295); Sodium 136 mmol/L (136-145); Total Bilirubin 0.3 mg/dL (0.15-1.2); Total Protein 6.9 g/dL (6.6-8.7)
[2023-07-07 19:39] LABS: Lactic Sepsis W/Reflex 2.5 mmol/L (0.5-2.2)
[2023-07-07 19:40] LABS: Potassium 2.5 mmol/L (3.5-5.1)
[2023-07-07] MEDS: sodium chloride 0.9% 500 ML 999 ML IV (19:43)
[2023-07-07 20:26] LABS: SARS Covid-2 Antigen positive (Negative)
[2023-07-07] MEDS: potassium chloride ER 20 mEq Tablet 60 MEQ PO (20:26)
[2023-07-07 20:36] LABS: Magnesium 1.8 mg/dL (1.7-2.3)
--- NOTE | 2023-07-07 20:49 | P.HP_ITS ---
Providers/Chief Complaint 2 Primary Care Provider: Madhavi Gimenez DO Chief Complaint: dehydration History of Present Illness Paddy Simon is a 38 year old male with a past medical history significant for severe persistent asthma, tobacco use disorder, rheumatoid arthritis, and cough syncope who presents to the emergency department with syncopal episode. His spouse is bedside and aids in providing history. Patient reports he is felt sick for the past couple of days. He endorses generalized fatigue, nausea, recurrent vomiting, congestion, productive cough, wheezing and decreased exercise tolerance. Spouse reports she was recently diagnosed with COVID-19 infection. Patient reports exertion worsens his symptoms. Rest improves. Per report, patient was found to be hypotensive with systolic blood pressures in the 70s per EMS report. In the emergency department, patient was found to have COVID-19 infection. Labs were notable for hypokalemia, elevated creatinine, and lactic acidosis. Chest x-ray was negative for acute findings. Patient treated with IV fluids and electrolyte replacement. Review of Systems 2 Narrative: A complete review of systems was obtained and is negative except as stated in HPI. Medications/Allergies Home Medications Medication Instructions Recorded Confirmed Last Taken Type albuterol sulfate 90 mcg/actuation 2 puff inhalation Q6H PRN 11/29/21 07/01/23 05/23/23 05:00 History aerosol inhaler Shortness Of Breath losartan 50 mg tablet 50 mg PO QAM 11/29/21 07/01/23 05/22/23 History montelukast 10 mg tablet 10 mg PO DAILY #30 tabs 12/02/22 07/01/23 05/22/23 Rx (Singulair) hydrochlorothiazide 25 mg tablet 12.5 mg PO BID 04/04/23 07/01/23 05/22/23 History hydroxychloroquine 200 mg tablet 200 mg PO BID #60 tabs 04/04/23 07/01/23 05/22/23 Rx varenicline 1 mg tablet (Chantix) 1 mg PO BID 90 days #180 tabs 04/04/23 07/01/23 05/22/23 Rx losartan 50 mg tablet 25 mg PO QPM 05/22/23 07/01/23 05/22/23 History fluticasone fur. 200 mcg-umeclid 1 inh inhalation DAILY #60 ea 06/06/23 07/01/23 Unknown Rx 62.5 mcg-vilant 25 mcg inhalat.powder (Trelegy Ellipta) pantoprazole 40 mg tablet,delayed 40 mg PO BID 1 month #60 tabs 06/06/23 07/01/23 Unknown Rx release sucralfate 100 mg/mL oral 1 g (10 mL) PO BID 6 weeks #840 mL 06/06/23 07/01/23 Unknown Rx suspension cholecalciferol (vitamin D3) 50 50 mcg PO DAILY 07/01/23 07/01/23 Unknown History mcg (2,000 unit) capsule folic acid 1 mg tablet 1 mg PO DAILY 07/01/23 07/01/23 Unknown History Allergies Allergy/AdvReac Type Severity Reaction Status Date / Time No Known Allergies Allergy Verified 07/01/23 14:09 PFSH Acute 2 PFSH: Medical History Polyp, nasopharynx Cough syncope Rash Asthma Hypertension Asthma Rheumatoid arthritis Fatigue Surgical History History of esophagogastroduodenoscopy (EGD) Family History Other CAD (coronary artery disease) Diabetes Hypertension Denies family history of Rheumatoid arthritis Lupus Hyperlipidemia Chronic kidney disease (CKD) Cancer Stroke Social History Smoking and tobacco/nicotine status: current every day tobacco/nicotine user cigarettes Packs smoked per day: 1 Years cigarettes smoked: 29 [ Other cigarette details: start at age 7] Alcohol intake: current Alcohol intake frequency: few times a week Substance/Drug Use: never Vitals/I&O/Wt Last Vital Signs Temp 98.7 F 07/07/23 18:38 Pulse 81 07/07/23 18:38 Resp 16 07/07/23 18:38 BP 108/62 07/07/23 18:38 Pulse Ox 97 07/07/23 18:38 O2 Del Method Room Air 07/07/23 18:38 07/07/23 07/07/23 07/07/23 06:59 14:59 22:59 Intake Total 1000 / 1000 Balance 1000 / 1000 Weight last 48 hrs Weight 79.379 kg Physical Exam 2 Narrative: General: Patient is awake and alert. Very pleasant but acutely ill-appearing. Coughs intermittently throughout exam. Head: Normocephalic. Atraumatic. Mucous membranes are dry. Neck: No JVD. Cardiovascular: RRR. No gallops. No murmurs. No peripheral edema. Lungs: Productive cough is present. Very faint end expiratory wheezing. Increased work of breathing and tachypnea when speaking. No crackles. No rales. Skin: No jaundice. Abdomen: Hypoactive bowel sounds, abdomen soft and nontender. Genito Urinary: Genital exam not performed since complaints not related. Rectal: Rectal exam not performed since no symptoms indicated blood loss. Extremities: No cyanosis or clubbing. Musculoskeletal: Normal muscular development for demographic. Neurological: Moves all 4 extremities. No myoclonus. Data 07/07/23 18:59 07/07/23 18:59 A&P Assessment and plan (1) Acute kidney injury: Suspected prerenal in the setting of nausea and vomiting Associated with lactic acidosis secondary to acute kidney injury Status post IVF resuscitation greater than 30 mL/kg body weight in the emergency department Continue IV fluid replacement with D5 half NS with potassium supplementation Avoid nephrotoxins Hold HCTZ and losartan Strict I's and O's Daily weights (2) COVID-19: Denies prior vaccinations, reports 4 prior suspected COVID infections Start inhaled nebulized steroids with Pulmicort Albuterol nebs Okay to use home inhaler Systemic steroids to treat underlying asthma (3) Hypokalemia: Secondary to GI loss from nausea and vomiting Telemetry monitoring Status post replacement in ED Potassium added to maintenance fluids Repeat electrolytes in the morning (4) Syncope: Suspect secondary to hypotension given soft blood pressure reported from EMS Treating with IV fluid resuscitation as above History of cough related syncope noted Telemetry monitoring Neurochecks Fall precautions Qualifiers: Syncope type: unspecified Qualified Code(s): R55 - Syncope and collapse (5) Severe persistent asthma: With acute exacerbation Start systemic steroids Nebulizing treatments Qualifiers: Asthma complication type: uncomplicated Qualified Code(s): J45.50 - Severe persistent asthma, uncomplicated (6) Rheumatoid arthritis: Continue home hydroxychloroquine (7) Hypertension: Hold HCTZ and losartan due to elevated blood pressure Hydralazine as needed Qualifiers: Hypertension type: primary hypertension Qualified Code(s): I10 - Essential (primary) hypertension (8) Nicotine addiction: Would benefit from cessation Qualifiers: Nicotine product type: cigarettes Substance use status: in withdrawal Qualified Code(s): F17.213 - Nicotine dependence, cigarettes, with withdrawal (9) Transaminitis: Appears to be chronic Repeat liver enzymes in a.m. Plan DVT prophylaxis: Heparin CODE STATUS: Full code Attestations 2 Medical Necessity Statement*: Patient presents with syncopal episode, found to have COVID-19 infection with associated intractable nausea/vomiting with resultant hypokalemia and acute kidney injury with expected hospitalization not crossed 2 midnights. Coding Level of Care Code Acute Code for [facility] Diagnoses Acute kidney injury N17.9 COVID-19 U07.1 Hypokalemia E87.6 Syncope R55 Syncope type: unspecified Severe persistent asthma without complication J45.50 Asthma complication type: uncomplicated Rheumatoid arthritis M06.9 Primary hypertension I10 Hypertension type: primary hypertension Cigarette nicotine dependence with withdrawal F17.213 Nicotine product type: cigarettes Substance use status: in withdrawal Transaminitis R74.01
[2023-07-07 21:04] LABS: Reflex Lactate Order REFLEX LACTIC ORDERD
[2023-07-07 21:24] VITALS: BP 154/73; PULSE 87; RESP 22; O2SAT 93
[2023-07-07 22:54] LABS: Glucose Urine UA Norm (Normal); Ketones Urine Negative (Negative); Protein Urine Neg (Negative); Specific Gravity, Urine 1.005 (1.005-1.030); Urine Appearance Clear (CLEAR); Urine Color Yellow (Yellow); pH Urine 7 (5-7)
[2023-07-07 22:55] LABS: Add Urine Culture? Yes; Add Urine Microscopic? YES; Bacteria Urine TRACE /hpf; Bilirubin Urine Neg (Negative); Blood Urine 3+ (Negative); Leukocyte Esterase Urine Negative (Negative); Nitrate Urine Negative (Negative); RBC Urine 15-25 /hpf (0-2); Urobilinogen Urine Neg (Negative)
[2023-07-07 23:40] LABS: Procalcitonin 0.14 ng/mL (0-0.5)
[2023-07-07] MEDS: methylPREDNISolone sod succ 125 MG in water for injection-sterile 2 ML 24 MG IVP (23:41)
[2023-07-07] MEDS: sodium chlor 0.9% + KCl 20 mEq 20 MEQ/1,000 ML BAG 125 MEQ IV (23:41)
[2023-07-07] MEDS: heparin 5,000 unit/mL INJ 1 mL 5000 UNIT SUBCUT (23:41)
[2023-07-07] MEDS: albuterol 2.5 mg/3 mL Neb INHALATION (23:52)
[2023-07-07 23:56] VITALS: PULSE 88; RESP 20; O2SAT 93
[2023-07-08] VITALS (10 sets, daily range): BP systolic 153–197; BP diastolic 88–118; PULSE 56–81; RESP 16–19; TEMP 36.8–37.1; O2SAT 92–98
[2023-07-08] MEDS: albuterol 2.5 mg/3 mL Neb INHALATION ×3 (04:11→11:16)
[2023-07-08 05:35] LABS: Basophils % 0.2 %; Hematocrit 48.8 % (37-53); Lymphocytes # 0.4 10^3/uL (0.8-4.8); Lymphocytes % 6.8 %; Mean Corpuscular HGB Conc 34.8 g/dL (30-55); Mean Corpuscular Hemoglobin 37.2 pg (27-33); Mean Corpuscular Volume 106.8 fl (82-101); Mean Platelet Volume 10.9 fL (7.4-10.4); Monocytes # 0.1 10^3/uL (0.2-0.9); Monocytes % 1.5 %; Nucleated Red Blood Cells % 0 %; Platelet Count 141 10^3/cmm (157-399); Red Blood Count 4.57 10^6/uL (3.85-5.65); Red Cell Distribution Width 12.5 % (12.1-15.1); White Blood Count 6.04 10^3/uL (3.29-11.43)
[2023-07-08 05:52] LABS: Alanine Aminotransferase 138 U/L (0-41); Albumin Level 3.9 g/dL (3.5-5.2); Alkaline Phosphatase 97 U/L (40-130); Anion Gap 14.8 (5-19); Aspartate Amino Transferase 114 U/L (0-40); Blood Urea Nitrogen 13 mg/dL (6-20); Calcium 8.8 mg/dL (8.5-10.5); Carbon Dioxide 26 mmol/L (22-29); Chloride 101 mmol/L (98-107); Globulin 3.1 g/dL (1.3-4.6); Glomerular Filtration Rate 51.8 mL/min (90-130); Glucose 149 mg/dL (65-115); Magnesium 1.6 mg/dL (1.7-2.3); Osmolality Calculated 289 mOsm/kg (285-295); Phosphorus 1.8 mg/dL (2.5-4.5); Potassium 3.8 mmol/L (3.5-5.1); Sodium 138 mmol/L (136-145); Total Bilirubin 0.4 mg/dL (0.15-1.2)
[2023-07-08 06:03] LABS: Slide Review Slide Review Perform
--- NOTE | 2023-07-08 08:07 | PC.PHAR ---
MEDICATIONS VERIFIED BY PTS AND MEDICATION BOTTLES IN PTS ROOM
[2023-07-08] MEDS: predniSONE 20 mg Tablet 40 MG PO (08:24)
[2023-07-08] MEDS: sodium chlor 0.9% + KCl 20 mEq 20 MEQ/1,000 ML BAG 125 MEQ IV (08:25)
[2023-07-08] MEDS: famotidine 20 mg/2 mL INJ IVP (08:35)
--- NOTE | 2023-07-08 08:59 | PC.CHAP ---
Pastoral Care Encounter/Spiritual Assessment Type of Contact [] Declined flower grower visit [] Patient/Family/Request visit [] Outpatient visit [] Follow-up visit [] Physician referral [] Code/Alert [] Routine visit [] Staff referral [] Actively dying [] Patient sleeping [] Family support [] [] Out of room [] Palliative care [] [] Receiving care in room [] Pre-surgical visit [] Trauma [] Long length of stay [] ICU visit [x] Other:Covid. No visit. 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 Interventions [] Prayer [] Active listening [] Non-anxious presence [] Spiritual/emotional support [] Crisis/trauma care [] Spiritual counseling [] Bereavement support [] Provided bereavement packet [] Provided Bible/devotional materials [] Provided toy/stuffed animal, coloring book to patient or family member [] Provided Communion [] Anointing/[place] [] Salvation [] Completed spiritual assessment [] Other: Impact on Illness or Injury [] Angry [] Fearful [] Anxious [] Often cries [] Exhaustion [] Unable to work [] Unable to attend mormon [] Unable to walk/stand [] Unable to read [] Unable to drive [] Unable to eat/drink [] Unable to sleep [] Unable to be with family [] Patient intubated [] Other: Summary Time spent with patient
[2023-07-08] MEDS: budesonide 0.5 mg/2 mL Neb INHALATION (09:13)
[2023-07-08] MEDS: heparin 5,000 unit/mL INJ 1 mL 5000 UNIT SUBCUT (11:01)
[2023-07-08] MEDS: hyDRALAzine 20 mg/mL INJ 1 mL 10 MG IVP (15:15)
--- NOTE | 2023-07-08 16:00 | PM.DCS ---
Discharge Providers Date of Admission: 07/07/23 22:13 Date of Discharge: July 23, 2023 Attending Provider at Admission: David Solitario MD Attending Provider at Discharge: Karma Fink MD Primary Care Provider: Madhavi Gimenez DO Diagnoses at Discharge Discharge Diagnosis (1) Acute kidney injury: Status: Acute (2) COVID-19: Status: Acute (3) Hypokalemia: Status: Acute (4) Syncope: Status: Acute Qualifiers: Syncope type: unspecified Qualified Code(s): R55 - Syncope and collapse (5) Severe persistent asthma: Status: Acute Qualifiers: Asthma complication type: uncomplicated Qualified Code(s): J45.50 - Severe persistent asthma, uncomplicated (6) Rheumatoid arthritis: Status: Acute (7) Hypertension: Status: Acute Qualifiers: Hypertension type: primary hypertension Qualified Code(s): I10 - Essential (primary) hypertension (8) Nicotine addiction: Status: Acute Qualifiers: Nicotine product type: cigarettes Substance use status: in withdrawal Qualified Code(s): F17.213 - Nicotine dependence, cigarettes, with withdrawal (9) Transaminitis: Status: Acute Reason for Visit Reason for Visit: dehydration Hospital Course Hospital Course Paddy Simon is a 38 year old male with a past medical history significant for severe persistent asthma, tobacco use disorder, rheumatoid arthritis, and cough syncope who presents to the emergency department with syncopal episode. Patient reports he is felt sick for the past couple of days. He endorses generalized fatigue, nausea, recurrent vomiting, congestion, productive cough, wheezing and decreased exercise tolerance. Patient reports exertion worsens his symptoms. Rest improves his symptoms. he was found to be hypotensive with SBP 70s by EMS at home. patient was found to have COVID-19 infection. Labs were notable for hypokalemia, elevated creatinine, and lactic acidosis. Chest x-ray was negative for acute findings. Patient treated with IV fluids and electrolyte replacement. Today he states that he feels much improved. He has no wheezing on exam. His blood pressure has been well-controlled during the day today, in fact trending towards hypotension. States that this is because of holding several of his medications yesterday for hypotension. Potentially may have had vasovagal syncope versus being dehydrated from acute viral infection. His hypokalemia has resolved today, potassium at 3.8. DARIA also improving with creatinine improved from 2.7-1.5. He has good urine output. Magnesium was replaced. He has mild transaminitis with AST ALT at 114/138, slowly trending up since 2021. Potentially may be related to acute viral illness, recommended serial follow-up with primary care physician for repeat labs and ensure resolution. He is quite eager to be discharged home today. He has received antihypertensives. Just prior to discharge. He indicates he would like to go home and will keep a blood pressure diary as recommended. Since he is overall clinically improved, he is discharged today with recommendations to take Paxlovid over the next 5 days to prevent progression to severe COVID given his underlying risk factors by way of asthma and rheumatoid arthritis. Losartan was held at discharge due to DARIA and he received prescription for new medication Amlodipine. Recommend f/up with PCP in 7-10 days Physical Exam Narrative: General: No acute distress, AO x3 HEENT: PERRLA, pupils bilaterally equal and reactive, pallors not present Chest: Normal vesicular breath sounds, no added sounds, equal good air entry bilaterally CVS: S1-S2 regular, no murmurs, no tachycardia, no gallops, no rubs Abdomen: Soft, nontender, no organomegaly, bowel sounds present Neuro: No focal deficits, no facial deformity, AO x3, power 5/5 in all limbs Discharge Data Studies Completed and Pending Completed Studies During Hospitalization Category Date Time Status XR chest 1V portable [id number] Stat Exams 07/07/23 18:35 Completed Radiology Impressions Chest X-Ray 07/07/23 18:35 IMPRESSION: No acute findings. Laboratory Results WBC 6.04 10^3/uL (3.29-11.43) 07/08/23 05:23 RBC 4.57 10^6/uL (3.85-5.65) 07/08/23 05:23 Hgb 17.00 g/dL (11.27-16.99) H 07/08/23 05:23 Hct 48.8 % (37-53) 07/08/23 05:23 MCV 106.8 fl (82-101) H 07/08/23 05:23 MCH 37.2 pg (27-33) H 07/08/23 05:23 MCHC 34.8 g/dL (30-55) 07/08/23 05:23 RDW 12.5 % (12.1-15.1) 07/08/23 05:23 Plt Count 141 10^3/cmm (157-399) L D 07/08/23 05:23 MPV 10.9 fL (7.4-10.4) H 07/08/23 05:23 Neut % (Auto) 91.0 % 07/08/23 05:23 Lymph % (Auto) 6.8 % 07/08/23 05:23 [place] % (Auto) 1.5 % 07/08/23 05:23 Eos % (Auto) 0.0 % 07/08/23 05:23 Baso % (Auto) 0.2 % 07/08/23 05:23 Neut # (Auto) 5.50 10^3/uL (1.8-7.7) 07/08/23 05:23 Lymph # (Auto) 0.4 10^3/uL (0.8-4.8) L 07/08/23 05:23 [place] # (Auto) 0.1 10^3/uL (0.2-0.9) L 07/08/23 05:23 Eos # (Auto) 0.0 10^3/uL (0.0-0.8) 07/08/23 05:23 Baso # (Auto) 0.0 10^3/uL (0.0-0.1) 07/08/23 05:23 Nucleated RBC % (auto) 0 % 07/08/23 05:23 Nucleated RBCs # 0.0 /100WBC 07/08/23 05:23 Sodium 138 mmol/L (136-145) 07/08/23 05:23 Potassium 3.8 mmol/L (3.5-5.1) 07/08/23 05:23 Chloride 101 mmol/L (98-107) 07/08/23 05:23 Carbon Dioxide 26 mmol/L (22-29) 07/08/23 05:23 Anion Gap 14.8 (5-19) 07/08/23 05:23 BUN 13 mg/dL (6-20) 07/08/23 05:23 Creatinine 1.5 mg/dL (0.7-1.2) H 07/08/23 05:23 GFR Calculation 51.8 mL/min (90-130) L 07/08/23 05:23 Glucose 149 mg/dL (65-115) H 07/08/23 05:23 Calculated Osmolality 289 mOsm/kg (285-295) 07/08/23 05:23 Lactic Acid 2.5 mmol/L (0.5-2.2) H 07/07/23 19:07 Lactic Acid (Sepsis) 3.0 mmol/L (0.5-2.2) H 07/07/23 22:25 Calcium 8.8 mg/dL (8.5-10.5) 07/08/23 05:23 Phosphorus 1.8 mg/dL (2.5-4.5) L 07/08/23 05:23 Magnesium 1.6 mg/dL (1.7-2.3) L 07/08/23 05:23 Total Bilirubin 0.4 mg/dL (0.15-1.2) 07/08/23 05:23 AST 114 U/L (0-40) H 07/08/23 05:23 ALT 138 U/L (0-41) H 07/08/23 05:23 Alkaline Phosphatase 97 U/L (40-130) 07/08/23 05:23 Total Protein 7.0 g/dL (6.6-8.7) 07/08/23 05:23 Albumin 3.9 g/dL (3.5-5.2) 07/08/23 05:23 Globulin 3.1 g/dL (1.3-4.6) 07/08/23 05:23 Procalcitonin 0.14 ng/mL (0-0.5) 07/07/23 22:25 Urine Color Yellow (Yellow) 07/07/23 21:18 Urine Appearance Clear (CLEAR) 07/07/23 21:18 Urine pH 7 (5-7) 07/07/23 21:18 Ur Specific [place] 1.005 (1.005-1.030) 07/07/23 21:18 Urine Protein Neg (Negative) 07/07/23 21:18 Urine Glucose (UA) Norm (Normal) 07/07/23 21:18 Urine Ketones Negative (Negative) 07/07/23 21:18 Urine Blood 3+ (Negative) H 07/07/23 21:18 Urine Nitrate Negative (Negative) 07/07/23 21:18 Urine Bilirubin Neg (Negative) 07/07/23 21:18 Urine Urobilinogen Neg mg/dL (Negative) 07/07/23 21:18 Ur Leukocyte Esterase Negative (Negative) 07/07/23 21:18 Urine RBC 15-25 /hpf (0-2) H 07/07/23 21:18 Urine WBC None /hpf (0-5) 07/07/23 21:18 Ur Squamous Epith Cells None /hpf (0-5) 07/07/23 21:18 Amorphous Sediment Not Reportable 07/07/23 21:18 Urine Bacteria Trace /hpf (NONE) 07/07/23 21:18 SARS-CoV-2 Ag (Rapid) positive (Negative) H 07/07/23 19:44 Vitals Last Vital Signs Temp 98.3 F 07/08/23 11:35 Pulse 67 07/08/23 11:35 Resp 16 07/08/23 11:35 BP 176/89 07/08/23 16:58 Pulse Ox 95 07/08/23 11:35 O2 Del Method Room Air 07/08/23 11:35 Discharge Plan Discharge Patient Disposition: Home Condition: Stable Prescriptions: New Paxlovid 300 mg (150 mg x 2)-100 mg tablets,dose pack See Rx Instructions .ROUTE .COMPLEX Qty: 30 0RF Rx Instructions: take TWO 150 mg tablets of nirmatrelvir with ONE 100 mg tablet of ritonavir twice daily for 5 days amlodipine 10 mg tablet 10 mg PO DAILY 30 Days Qty: 30 0RF Continued pantoprazole 40 mg tablet,delayed release (DR/EC) 40 mg PO BID 30 Days Qty: 60 5RF albuterol sulfate 90 mcg/actuation HFA aerosol inhaler 2 puff inhalation Q6H PRN (Reason: Shortness Of Breath) hydrochlorothiazide 25 mg tablet 12.5 mg PO BID varenicline [Chantix] 1 mg tablet 1 mg PO BID 90 Days Qty: 180 0RF folic acid 1 mg tablet 1 mg PO DAILY cholecalciferol (vitamin D3) 50 mcg (2,000 unit) capsule 50 mcg PO DAILY hydroxychloroquine 200 mg tablet 200 mg PO BID Qty: 60 2RF Trelegy Ellipta 200-62.5-25 mcg blister with device 1 inh inhalation DAILY Qty: 60 6RF losartan 50 mg tablet See Rx Instructions .ROUTE .COMPLEX Rx Instructions: 50 mg qam and 25 mg qpm potassium chloride 20 mEq tablet,ER particles/crystals 40 meq PO DAILY vitamin D04-xwmgp acid 0.5-1 mg Tablet 1 tab PO DAILY No Action montelukast [Singulair] 10 mg tablet 10 mg PO DAILY Qty: 30 6RF Discharge Orders: Discharge Order (Routine); Ordered 07/08/23 Ordered By: Karma Fink Referrals: Madhavi Gimenez DO [Primary Care Provider] - 07/17/23 3:00 pm Discharge Diet: Cardiac Patient Instructions: Prednisone (By mouth), Amlodipine (By mouth), Nirmatrelvir/Ritonavir (By mouth), Dehydration (GEN), Chronic Hypertension (GEN), Opioid Safety Discharge Attestations Time Spent in Discharge Care*: greater than 30 min Quality Metrics Clinical Quality Measures [ No reported AMI, CVA or VTE this stay] Coding Level of Care Code Acute Code for Chg Fwd Diagnoses Acute kidney injury N17.9 COVID-19 U07.1 Hypokalemia E87.6 Syncope R55 Syncope type: unspecified Severe persistent asthma without complication J45.50 Asthma complication type: uncomplicated Rheumatoid arthritis M06.9 Primary hypertension I10 Hypertension type: primary hypertension Cigarette nicotine dependence with withdrawal F17.213 Nicotine product type: cigarettes Substance use status: in withdrawal Transaminitis R74.01
[2023-07-08] MEDS: amlodipine 5 mg Tablet PO (16:34)
== END 2023-07-08 16:59 | disposition home or self-care (01) ==
LOC: ER 20:49 → MEDSURG 23:01
PROVIDERS: Admitting Provider Internal Medicine; Emergency Provider Emergency Medicine; PCP Family Medicine; Visit Provider Student in an Organized Health Care Education/Training Program
DX: U07.1 COVID-19 (principal); N17.9 Acute kidney failure, unspecified; E87.6 Hypokalemia; R55 Syncope and collapse; J45.50 Severe persistent asthma, uncomplicated; M06.9 Rheumatoid arthritis, unspecified; I10 Essential (primary) hypertension; F17.213 Nicotine dependence, cigarettes, with withdrawal; R74.01 Elevation of levels of liver transaminase levels
CPT/HCPCS: 36415; 71045; 80053; 81001; 83605; 83735; 84100; 84145; 85025; 87086; 87426; 93005; 94640; 96361; 96365; 96372; 96375; 99285; G0378; J0360; J1644; J2930; J3480; J3490; J7030; J7040; J7512; J7613; J7626

== ENCOUNTER 2023-09-26 16:44 | Outpatient (CLI) | payer OTHER, SELFPAY ==
--- NOTE | 2023-09-26 17:00 | CT_ITS ---
WS: [id number] CT SINUSES TECHNIQUE: Noncontrast CT of the paranasal sinuses with coronal and sagittal reformatted images. CLINICAL INFORMATION: nasal polyp COMPARISON: None. DLP: 451.[address] scans at [facility] use at least one of these dose optimization techniques: automated e xposure control; mA and/or kV adjustment per patient size (includes targeted exams where dose is matc hed to clinical indication); or iterative reconstruction. FINDINGS: Mild LEFT RIGHT nasal septal deviation with leftward directed spur. Septal deviation measures 2 to 3 mm. Frothy secretions in the RIGHT maxillary sinus compatible with sinusitis. Frontal sinuses are wel l aerated. Mild mucosal thickening in the ethmoid air cells. Sphenoid sinuses are well aerated. Mucos al thickening along the sphenoid sinus ostia. Mild polypoid mucosal thickening LEFT maxillary sinus. Partial opacification of the LEFT greater than RIGHT frontoethmoidal recesses. Partial opacification of the mastoid air cells bilaterally. Mild muc osal thickening middle ear bilaterally. Normal parapharyngeal fat. Prominent adenoid tissue in the po sterior nasopharynx. Normal parapharyngeal fat. IMPRESSION: 1. Mild RIGHT to LEFT nasal septal deviation measuring 2 to 3 mm with a leftward directed spur. 2. RIGHT maxillary sinusitis with frothy secretions. 3. Mild mucosal thickening in the ethmoid air cells and frontoethmoidal sinuses. Mild polypoid mucos al thickening LEFT maxillary sinus. 4. Mucosal thickening in the mastoid air cells bilaterally. 5. Mucosal thickening in the LEFT greater than RIGHT middle ears with retraction of the tympanic mem brane. 6. Prominent adenoid tissue in the posterior nasopharynx. Recommend RIGHT visualization.
== END 2023-09-26 16:45 | disposition home or self-care (01) ==
LOC: RAD 16:44
PROVIDERS: PCP Family Medicine; Visit Provider Otolaryngology
DX: J33.0 Polyp of nasal cavity (principal); J39.2 Other diseases of pharynx; H69.93 Unspecified Eustachian tube disorder, bilateral
CPT/HCPCS: 70486

== ENCOUNTER 2023-10-07 12:51 | Outpatient (CLI) | payer OTHER, SELFPAY ==
--- NOTE | 2023-10-07 12:56 | MM_ITS ---
WS: [id number] DIAGNOSTIC BILATERAL DIGITAL BREAST TOMOSYNTHESIS MAMMOGRAPHY WITH CAD HISTORY: LT BREAST ABSCESS, male patient. COMPARISON: None available. TECHNIQUE: Bilateral craniocaudad, mediolateral oblique, and mediolateral views are submitted with to mosaneta and SM. Spot compression LEFT MLO. Computer aided detection utilized. Breast composition: There are scattered areas of fibroglandular density. Irregular increased asymmetr y in the anterior central LEFT breast corresponds to the palpable painful area. Mild dendritic appear ance measuring 2.6 x 2.7 cm. Very subtle area of increased density posterior to the RIGHT nipple also . LEFT breast ultrasound, limited. Hypoechoic ill-defined mass with dendritic extensions posterior to the nipple with increased vascular ity. Mass measures 3.2 x 1.1 cm. Consistent with gynecomastia. No definite similar findings RIGHT coretta ast. RIGHT breast was performed for comparison purposes. IMPRESSION: MM/[place] [id number] BI-RADS: 2-Benign FOLLOW UP: See Report Soft tissue mass posterior to the LEFT nipple is most consistent with gynecomas tia.
== END 2023-10-07 12:52 | disposition home or self-care (01) ==
LOC: RAD 12:51
PROVIDERS: PCP Family Medicine; Visit Provider Family Medicine
DX: N61.1 Abscess of the breast and nipple (principal)
CPT/HCPCS: 76642; 77062; G0279

== ENCOUNTER 2023-12-01 15:08 | Outpatient (CLI) | payer OTHER, SELFPAY ==
--- NOTE | 2023-12-01 15:13 | XRR_ITS ---
PROCEDURE INFORMATION: Exam: XR Chest Exam date and time: 12/01/2023 3:16 PM Age: 38 years old Clinical indication: Condition or disease; Lung condition and disease; Asthma; Severity not specified; Cough TECHNIQUE: Imaging protocol: Radiologic exam of the chest. Views: 2 views. COMPARISON: CR (CHEST, ) 07/07/2023 6:41 PM FINDINGS: Lungs: Peribronchial wall thickening. No consolidation. Pleural spaces: Unremarkable. No pleural effusion. No pneumothorax. Heart/Mediastinum: Unremarkable. No cardiomegaly. Bones/joints: Unremarkable. XR/XR chest 2V* [id number] IMPRESSION: Peribronchial wall thickening consistent with bronchitis.
== END 2023-12-01 15:09 | disposition home or self-care (01) ==
LOC: RAD 15:11
PROVIDERS: PCP Family Medicine; Visit Provider Family Medicine
DX: R05.9 Cough, unspecified (principal); J40 Bronchitis, not specified as acute or chronic
CPT/HCPCS: 71046

== ENCOUNTER 2023-12-14 10:50 | Emergency (ER) | payer OTHER, SELFPAY ==
--- NOTE | 2023-12-14 10:53 | XRR_ITS ---
PROCEDURE INFORMATION: Exam: XR Chest Exam date and time: 12/14/2023 11:05 AM Age: 38 years old Clinical indication: Other: Nausea; Vomiting; Weakness TECHNIQUE: Imaging protocol: Radiologic exam of the chest. Views: 1 view. COMPARISON: CR XR chest 2V* [id number] 12/31/2023 15:16 FINDINGS: Lungs: Unremarkable. No consolidation. Pleural spaces: Unremarkable. No pleural effusion. No pneumothorax. Heart/Mediastinum: Unremarkable. No cardiomegaly. Bones/joints: Unremarkable. XR/XR chest 1V portable [id number] IMPRESSION: No acute findings.
--- NOTE | 2023-12-14 10:53 | ECG_ITS ---
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 Measurements Intervals [place] Rate: 84 P: 67 [place]: 155 QRS: 84 QRSD: 105 T: 52 QT: 351 QTc: 416 Interpretive Statements SINUS RHYTHM Compared to ECG 07/07/2023 18:40:34 Intraventricular conduction delay no longer present T-wave abnormality no longer present Electronically Signed On 12-14-2023 13:10:34 CDT by Dionicio Fernandes M.D. [id number] f
[2023-12-14 10:58] VITALS: BP 171/96; PULSE 85; RESP 16; TEMP 37; O2SAT 93
[2023-12-14 11:47] LABS: Basophils % 0.4 %; Hematocrit 46.1 % (37-53); Lymphocytes # 2.2 10^3/uL (0.8-4.8); Lymphocytes % 22.6 %; Mean Corpuscular HGB Conc 34.7 g/dL (30-55); Mean Corpuscular Hemoglobin 37.6 pg (27-33); Mean Corpuscular Volume 108.5 fl (82-101); Mean Platelet Volume 9.7 fL (7.4-10.4); Monocytes # 1.1 10^3/uL (0.2-0.9); Monocytes % 11.4 %; Neutrophils # 6.31 10^3/uL (1.8-7.7); Neutrophils % 65.3 %; Nucleated Red Blood Cells % 0 %; Platelet Count 203 10^3/cmm (157-399); Red Blood Count 4.25 10^6/uL (3.85-5.65); White Blood Count 9.67 10^3/uL (3.29-11.43)
[2023-12-14 11:49] VITALS: BP 147/88; PULSE 87; RESP 16; O2SAT 92
[2023-12-14 12:04] LABS: Influenza A by IFA negative (Negative); Influenza B by IFA negative (Negative)
[2023-12-14 12:06] LABS: Alanine Aminotransferase 207 U/L (0-41); Albumin Level 4.1 g/dL (3.5-5.2); Alkaline Phosphatase 106 U/L (40-130); Anion Gap 17.1 (5-19); Aspartate Amino Transferase 147 U/L (0-40); Blood Urea Nitrogen 13 mg/dL (6-20); Calcium 8.4 mg/dL (8.5-10.5); Carbon Dioxide 26 mmol/L (22-29); Chloride 104 mmol/L (98-107); Creatinine Clr Calc Pharmacy 100.9922; Globulin 3.2 g/dL (1.3-4.6); Glomerular Filtration Rate 82.8 mL/min (90-130); Glucose 114 mg/dL (65-115); Lactic Sepsis W/Reflex 1.4 mmol/L (0.5-2.2); Osmolality Calculated 299 mOsm/kg (285-295); Potassium 3.1 mmol/L (3.5-5.1); Sodium 144 mmol/L (136-145); Total Bilirubin 0.3 mg/dL (0.15-1.2); Total Protein 7.3 g/dL (6.6-8.7)
[2023-12-14 12:07] LABS: SARS Covid-2 Antigen negative (Negative)
--- NOTE | 2023-12-14 12:07 | W.ED.SYNCOPE ---
HPI - Syncope General: Chief Complaint: Syncope Stated Complaint: dizzy/very weak Time Seen by Provider: 12/14/23 11:12 History of Present Illness: Patient with a history of chronic vomiting who presents the emergency room with cough but near syncopal episodes. He says he went down a couple times yesterday and today got real lightheaded and had to go to the knee. No chest pain. No focal motor deficits. No altered mental status. No abdominal pain. He says he has vomiting daily and is supposed to see a GI doctor. No known fevers. Review of Systems Narrative: Constitutional symptoms: Negative except as documented in HPI. Skin symptoms: Negative except as documented in HPI. Eye symptoms: Negative except as documented in HPI. ENMT symptoms: Negative except as documented in HPI. Respiratory symptoms: Negative except as documented in HPI. Cardiovascular symptoms: Negative except as documented in HPI. Gastrointestinal symptoms: Negative except as documented in HPI. Genitourinary symptoms: Negative except as documented in HPI. Musculoskeletal symptoms: Negative except as documented in HPI. Neurologic symptoms: Negative except as documented in HPI. Psychiatric symptoms: Negative except as documented in HPI. Endocrine symptoms: Negative except as documented in HPI. [facility] ED PFSH: Medical History Polyp, nasopharynx Cough syncope Rash Asthma Hypertension Asthma Rheumatoid arthritis Fatigue Surgical History History of esophagogastroduodenoscopy (EGD) Family History Other CAD (coronary artery disease) Diabetes Hypertension Denies family history of Rheumatoid arthritis Lupus Hyperlipidemia Chronic kidney disease (CKD) Cancer Stroke Social History Smoking and tobacco/nicotine status: current every day tobacco/nicotine user cigarettes Packs smoked per day: 1 Years cigarettes smoked: 29 [ Other cigarette details: start at age 7] Alcohol intake: current Alcohol intake frequency: few times a week Substance/Drug Use: never Physical Exam Narrative: EXAM NARRATIVE: General: Alert, no acute distress. Skin: Warm, dry. Head: Normocephalic, atraumatic. Neck: Supple, trachea midline. Eye: Extraocular movements are intact. Ears, nose, mouth and throat: mucosa moist. Cardiovascular: Regular, Normal peripheral perfusion. Respiratory: Lungs are clear to auscultation, respirations are non-labored, breath sounds are equal, Symmetrical chest wall expansion. Gastrointestinal: Soft, Nontender, Non distended, Normal bowel sounds. Musculoskeletal: Normal ROM, no deformity. Neurological: Alert and oriented, No focal neurological deficit observed. Psychiatric: Cooperative, appropriate mood & affect. Course Vital Signs: Vital signs: Vital Signs Temperature 98.6 F 12/14/23 10:58 Pulse Rate 87 12/14/23 11:49 Respiratory Rate 16 12/14/23 11:49 Blood Pressure 147/88 12/14/23 11:49 Pulse Oximetry 92 12/14/23 11:49 Oxygen Delivery Me thod Room Air 12/14/23 11:49 MDM - Syncope Medical Decision Making Medical decision making: Differential diagnosis for patient presenting with generalized weakness including but not limited to and based on the above HPI, review of systems and physical exam: Sepsis. Dehydration. Renal failure. Electrolyte abnormalities. Anemia. Congestive heart failure. Hypotension. Coronary syndrome. Hepatitis. Cirrhosis. Infections such as pneumonia, urinary tract infection, [place] illness, Cellulitis, Viral infections including influenza and Covid-19. Workup: labwork and lab/exam driven imaging ordered to evaluate, rule in and rule out above pathologies. EKG: Time 1053 rate 84. Normal sinus rhythm, No ST-T changes, no ectopy, normal [place] & QRS intervals, This was reviewed and interpreted by myself the ER physician at 1056 Chest x-ray: No acute process. No infiltrate. No pneumothorax. No cardiomegaly. This was reviewed and interpreted by myself the ER physician. Lab Review: Laboratory results were reviewed and interpreted by myself the emergency room physician. White count is 9. Hemoglobin 16. BUN and creatinine are 13 and 1. Potassium is a little low at 3.1. Blood alcohol level is 340 at 11 AM on Friday morning. Flu and COVID are negative. I reviewed the patient's medical record. Reexamination: Patient remained stable. No increased work of breathing. No altered mental status. He says he has not had anything to drink today. He said he had some tinctures that do contain some alcohol. He does not appear intoxicated at this time. His says as far she knows he had been cutting back on his alcohol use. Assessment and plan: Bronchitis - Discharged home - Discussed findings and plan with patient. Answered any questions. - All laboratory values were reviewed and interpreted personally by myself, the ER physician - All imaging was reviewed and interpreted personally by myself, the ER physician. - Evaluation and treatment of this problem were appropriate in the emergency setting Lab Data 12/14/23 11:18 12/14/23 11:18 Radiology Impressions Chest X-Ray 12/14/23 10:53 IMPRESSION: No acute findings. Laboratory Results WBC 9.67 10^3/uL (3.29-11.43) 12/14/23 11:18 RBC 4.25 10^6/uL (3.85-5.65) 12/14/23 11:18 Hgb 16.00 g/dL (11.27-16.99) 12/14/23 11:18 Hct 46.1 % (37-53) 12/14/23 11:18 MCV 108.5 fl (82-101) H 12/14/23 11:18 MCH 37.6 pg (27-33) H 12/14/23 11:18 MCHC 34.7 g/dL (30-55) 12/14/23 11:18 RDW 14.0 % (12.1-15.1) 12/14/23 11:18 Plt Count 203 10^3/cmm (157-399) 12/14/23 11:18 MPV 9.7 fL (7.4-10.4) 12/14/23 11:18 Neut % (Auto) 65.3 % 12/14/23 11:18 Lymph % (Auto) 22.6 % 12/14/23 11:18 [place] % (Auto) 11.4 % 12/14/23 11:18 Eos % (Auto) 0.0 % 12/14/23 11:18 Baso % (Auto) 0.4 % 12/14/23 11:18 Neut # (Auto) 6.31 10^3/uL (1.8-7.7) 12/14/23 11:18 Lymph # (Auto) 2.2 10^3/uL (0.8-4.8) 12/14/23 11:18 [place] # (Auto) 1.1 10^3/uL (0.2-0.9) H 12/14/23 11:18 Eos # (Auto) 0.0 10^3/uL (0.0-0.8) 12/14/23 11:18 Baso # (Auto) 0.0 10^3/uL (0.0-0.1) 12/14/23 11:18 Nucleated RBC % (auto) 0 % 12/14/23 11:18 Nucleated RBCs # 0.0 /100WBC 12/14/23 11:18 Sodium 144 mmol/L (136-145) 12/14/23 11:18 Potassium 3.1 mmol/L (3.5-5.1) L 12/14/23 11:18 Chloride 104 mmol/L (98-107) 12/14/23 11:18 Carbon Dioxide 26 mmol/L (22-29) 12/14/23 11:18 Anion Gap 17.1 (5-19) 12/14/23 11:18 BUN 13 mg/dL (6-20) 12/14/23 11:18 Creatinine 1.0 mg/dL (0.7-1.2) 12/14/23 11:18 GFR Calculation 82.8 mL/min (90-130) L 12/14/23 11:18 Glucose 114 mg/dL (65-115) 12/14/23 11:18 Calculated Osmolality 299 mOsm/kg (285-295) H 12/14/23 11:18 Lactic Acid 1.4 mmol/L (0.5-2.2) 12/14/23 11:18 Calcium 8.4 mg/dL (8.5-10.5) L 12/14/23 11:18 Total Bilirubin 0.3 mg/dL (0.15-1.2) 12/14/23 11:18 AST 147 U/L (0-40) H 12/14/23 11:18 ALT 207 U/L (0-41) H 12/14/23 11:18 Alkaline Phosphatase 106 U/L (40-130) 12/14/23 11:18 Ammonia 44 umol/L (16-60) 12/14/23 11:18 C-Reactive Protein 3.0 mg/L (0.0-4.9) 12/14/23 11:18 Total Protein 7.3 g/dL (6.6-8.7) 12/14/23 11:18 Albumin 4.1 g/dL (3.5-5.2) 12/14/23 11:18 Globulin 3.2 g/dL (1.3-4.6) 12/14/23 11:18 Ethyl Alcohol 339 mg/dL (0-10) H* 12/14/23 11:18 Influenza Type A Ag negative (Negative) 12/14/23 11:21 Influenza Type B Ag negative (Negative) 12/14/23 11:21 SARS-CoV-2 Ag (Rapid) negative (Negative) 12/14/23 11:21 All radiology interpretation(s) finalized by discharge Discharge Plan Discharge Patient Disposition: Home Clinical Impression: Bronchitis Condition: Stable Prescriptions: New doxycycline monohydrate 100 mg capsule 100 mg PO BID 10 Days Qty: 20 0RF No Action albuterol sulfate 90 mcg/actuation HFA aerosol inhaler 2 puff inhalation Q6H PRN (Reason: Shortness Of Breath) cholecalciferol (vitamin D3) 50 mcg (2,000 unit) capsule 50 mcg PO DAILY pantoprazole 40 mg tablet,delayed release (DR/EC) 40 mg PO DAILY 30 Days Qty: 30 5RF hydroxychloroquine 200 mg tablet 200 mg PO BID Qty: 60 2RF montelukast [Singulair] 10 mg tablet 10 mg PO DAILY Qty: 90 6RF Trelegy Ellipta 200-62.5-25 mcg blister with device 1 inh inhalation DAILY Qty: 60 6RF prednisone 20 mg tablet See Rx Instructions .ROUTE .COMPLEX Rx Instructions: as directed Discharge Orders: Discharge ED (Routine); Ordered 12/14/23 Ordered By: Winnie العراقي Referrals: Madhavi Gimenez DO [Primary Care Provider] - Discharge Diet: Usual diet Discharge Activity: Increase activity as tolerated Patient Instructions: Acute Bronchitis (ED) Activity Restrictions/Additional Instructions: Thank you for choosing [facility] for your healthcare needs today. Please realize this is an emergency room and that we are providing you with a medical screening exam and this may not be complete and all inclusive of all the testing and or work up that you may need to determine your ailment or severity of your illness. You have been screened and evaluated and felt safe for discharge. Health conditions do change or evolve sometimes and as such it is important that you follow up with your Primary Doctor to be re checked, 3-5 days is a general good time frame for follow up. 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
[2023-12-14 12:09] LABS: Alcohol Level 339 mg/dL (0-10); Ammonia 44 umol/L (16-60)
[2023-12-14 12:43] VITALS: BP 165/101; PULSE 91; RESP 16; TEMP 37; O2SAT 93
== END 2023-12-14 12:44 | disposition home or self-care (01) ==
PROVIDERS: Emergency Provider Emergency Medicine; PCP Family Medicine
DX: J40 Bronchitis, not specified as acute or chronic (principal); F17.210 Nicotine dependence, cigarettes, uncomplicated; Z20.822 Contact with and (suspected) exposure to COVID-19
CPT/HCPCS: 71045; 80053; 80307; 82140; 83605; 85025; 86140; 87040; 87426; 87804; 93005; 99285; 99291

== ENCOUNTER 2024-05-26 10:23 | Emergency (ER) | payer OTHER, SELFPAY | END 2024-05-26 10:38 | disposition left against medical advice (07) | PROVIDERS: Emergency Provider Family Medicine; PCP Family Medicine | DX: Z53.21 Procedure and treatment not carried out due to patient leaving prior to being seen by health care provider (principal) ==